=== PATIENT | male | born 1990 | race Hispanic/Latino ===

== ENCOUNTER 2024-08-08 19:52 | Emergency (ER) | payer BC, OTHER ==
[2024-08-08] MEDS ORDERED: FENTANYL CITR 100 MCG/2 ML ONE (20:09)
[2024-08-08 20:22] LABS: Absolute Monocytes 0.3 K/uL (0.1-1.3); Absolute Neutrophil 8.1 K/uL (1.8-8.0); Basophils % 0.3 % (0-1.3); Eosinophils % 0.4 % (0-4.4); Hematocrit 46.7 % (39.6-49.0); Hemoglobin 15.7 g/dL (13.6-17.9); Lymphocytes % 32.1 % (15.3-44.8); MCH 31.1 pg (27.0-35.0); MCHC 33.7 g/dL (32.0-36.0); MCV 92.2 fL (80-100); MPV 8.8 fL (7.6-11.3); Monocytes % 2.6 % (3.3-12.3); Neutrophils % 64.6 % (41.7-73.7); Nucleated Red Blood Cells % 0.1 % (0-0); Platelets 286 thou/uL (152-406); RBC Red Blood Cell Count 5.06 M/uL (4.33-5.43); Red Cell Distribution Width 12.6 % (12.1-15.2)
[2024-08-08 20:41] LABS: Anion Gap 9.5 mEq/L (5.0-15.0)
[2024-08-08 20:43] LABS: Potassium 3.5 mEq/L (3.5-5.1)
--- NOTE | 2024-08-08 20:44 | RAD REPORT ---
EXAM: CT CHEST HEAD , CERVICAL SPINE, ABDOMEN AND PELVIS WITHOUT CONTRAST CLINICAL INDICATION: Male, 34 years Autoped TECHNIQUE: CT chest head, cervical spine,, abdomen and pelvis was performed, with IV contrast, as per department protocol. Axial, sagittal and coronal reconstructions were obtained. One or more of the following dose reduction techniques were used: Automated exposure control, adjustment of the mA and/o r kV according to the patient size, and/or iterative reconstruction. Unless otherwise specified, incidental findings do not require dedicated imaging follow-up. [id number]. COMPARISON: No prior exam. FINDINGS: Head: INTRACRANIAL: No acute intracranial hemorrhage. No hydrocephalus. No mass effect or midline shift. No significant white matter disease. VASCULATURE: No visualized abnormalities in the arteries or dural venous sinuses. SCALP/SKULL: No significant soft tissue or osseous abnormalities. SINUSES: The visualized paranasal sinuses and mastoid air cells are predominantly clear. Cervical spine: ALIGNMENT: The cervical spine has normal alignment without scoliosis or spondylolisthesis. BONE: Vertebral body heights are maintained. No aggressive osseous lesions. DEGENERATIVE CHANGES: None significant. SOFT TISSUE: No significant abnormalities in the soft tissue of the neck. The visualized lung apices are clear. Chest: LOWER NECK/CHEST WALL: Visualized thyroid gland and soft tissues are normal. LUNGS AND AIRWAYS: Airways are clear. No evidence of airspace or interstitial process. No nodules. PLEURA: Small right basilar pneumothorax present. MEDIASTINUM AND LYMPH NODES: No mediastinal mass or fluid collection. Normal size mediastinal, hilar, and axillary lymph nodes. THORACIC AORTA: Normal caliber and configuration. PULMONARY ARTERIES: Normal caliber. HEART: Unremarkable. Abdomen/Pelvis LIVER: Grade 3 liver laceration to the right hepatic dome. No evidence of active bleeding. GALLBLADDER/BILE DUCTS: No biliary ductal dilatation. PANCREAS: No mass, ductal dilation, or chalo-pancreatic fluid. SPLEEN: Normal size. No focal lesion. ADRENALS: Normal; no mass. KIDNEYS AND URETERS: Normal size and contour. No hydronephrosis. GASTROINTESTINAL TRACT: Stomach is non-dilated. Small bowel has normal course and caliber. No colonic wall thickening or pericolonic inflammatory changes. PERITONEUM: No free fluid. LYMPH NODES: No lymphadenopathy. ABDOMINAL AORTA AND OTHER VESSELS: Normal caliber aorta and IVC. URINARY BLADDER: There is mass effect on the bladder secondary to hematoma that is extraperitoneal in the prevesical region. REPRODUCTIVE ORGANS: No pathologic process. MUSCULOSKELETAL: Highly comminuted fracture of the right acetabulum involving the anterior column wit h posterior hemitransverse component. There are fractures of both the right and left pubic symphysis. There is a mildly displaced fracture involving the right inferior pubic ramus. There is lai rrounding hematoma. No evidence of active bleeding. Nondisplaced right eighth, ninth rib fractures laterally. Nondisplaced right fourth through seventh anterior rib fractures also noted. ADDITIONAL FINDINGS: None IMPRESSION: 1. No acute intracranial abnormality. 2. No fracture or malalignment of the cervical spine. 3. Small right sided pneumothorax secondary minimally displaced right fourth through ninth rib fractu res.. 4. Grade 3 liver laceration at the right hepatic lobe. No evidence of active bleeding. 5. Comminuted complex right acetabular fracture involving the anterior column with posterior hemitran sverse component. No dislocation. There are also fractures at both the right and left pubic symphysis. 6. Hematoma from the right hip fracture results in mass effect on the bladder. Regarding 3-5, discussed with Dr. Burgos by Dr. Wright at 2034 on 08/08/24
[2024-08-08] MEDS ORDERED: HYDROMORPHONE HCL 1 MG/ML INJ ONE (20:45)
[2024-08-08] MEDS ORDERED: TDAP (DIPHTH,PERTUSS(ACELL),TET VAC) 0.5 ML VIAL IMVAC ONE (20:47)
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
--- NOTE | 2024-08-08 20:50 | RAD REPORT ---
EXAM: Chest Single View HISTORY: autoped COMPARISON: None. FINDINGS: LUNGS/PLEURA: The lungs are clear. No pleural effusions or pneumothorax. No pulmonary edema. MEDIASTINUM: The mediastinal silhouette is within normal limits. CARDIAC: The cardiac silhouette is within normal limits. UPPER ABDOMEN: No significant abnormality. BONES: Right lateral eighth rib fracture. LINES/TUBES/OTHER: N/A IMPRESSION: No evidence of acute cardiopulmonary disease. Note that a small right basilar pneumothorax was identi fied on the subsequent CT. Mildly displaced right lateral eighth rib fracture.
[2024-08-08 21:40] VITALS: TEMP 98.5
[2024-08-08 21:46] VITALS: O2SAT 100
[2024-08-08 21:52] VITALS: BP 102/81
== END 2024-08-08 21:25 | disposition short-term general hospital (02) ==
LOC: ER 19:52
DX: S36.116A Major laceration of liver, initial encounter (principal); S32.82XA Multiple fractures of pelvis without disruption of pelvic ring, initial encounter for closed fracture; J93.9 Pneumothorax, unspecified; S30.0XXA Contusion of lower back and pelvis, initial encounter; S01.01XA Laceration without foreign body of scalp, initial encounter; V03.90XA Pedestrian on foot injured in collision with car, pick-up truck or van, unspecified whether traffic or nontraffic accident, initial encounter
CPT/HCPCS: 85025; 80048; 36415; 86900; 86850; 86901; 70450; 72125; 71260; 74177; 71045; 96375; 96372; 96374; 99285; Q9967; J3010; J1171